=== PATIENT | female | born 1945 | race Caucasian/White ===

== ENCOUNTER 2017-12-22 12:17 | Inpatient (IN) | payer MEDICARE, MEDICAID ==
[~2017-12-22] VITALS: Ht 157.5 cm; Wt 84.8 kg
[2017-12-22 12:34] VITALS: BP 128/37; BP 129/56
[2017-12-22 12:36] LABS: URINE BILIRUBIN NEGATIVE (Negative); URINE BLOOD 1+ (Negative); URINE CLARITY SL CLOUDY; URINE COLOR DARK YELLOW; URINE GLUCOSE-RANDOM NEGATIVE (Negative); URINE KETONES TRACE (Negative); URINE LEUKOCYTES-REFLEX 1+ (Negative); URINE NITRITE-REFLEX NEGATIVE (Negative); URINE PROTEIN NEGATIVE (Negative); URINE SPECIFIC GRAVITY 1.015 (1.005-1.030); URINE UROBILINOGEN 0.2 E.U./dl (0.2-1.0)
[2017-12-22] MEDS ORDERED: XIFAXAN550 M1 PO (12:41)
[2017-12-22] MEDS ORDERED: LASIX 20 MG TAB20 MG PO (12:42)
[2017-12-22] MEDS ORDERED: PROZAC10 MG PO (12:42)
[2017-12-22] MEDS ORDERED: TRAZODONE HCL100 MG PO (12:43)
[2017-12-22] MEDS ORDERED: ZOFRAN ODT4 MG PO (12:43)
[2017-12-22] MEDS ORDERED: SPIRONOLACTONE100 M1 PO (12:43)
[2017-12-22] MEDS ORDERED: REQUIP 0.25 M0.25 MG PO (12:44)
[2017-12-22] MEDS ORDERED: LACTULOSE20 GM/30 M PO (12:45)
[2017-12-22 12:56] LABS: ABSOLUTE LYMPHOCYTES 0.2 thou/uL (0.8-5.3); ABSOLUTE MONOCYTES 0.2 thou/uL (0.0-1.2); ABSOLUTE NEUTROPHILS 1.7 thou/uL (1.6-8.1); BASOPHILS 0.4 %; EOSINOPHILS 1.1 %; HEMATOCRIT 26.7 % (37.0-47.0); HEMOGLOBIN 8.8 gm/dL (12.0-15.0); MCH 28.4 pg (26.0-34.0); MONOCYTES 8.9 %; NUCLEATED RBCS 0 /100WBC; POLYS 79.6 %; RBC 3.11 mil/uL (4.20-5.00); RDW-CV 17.6 % (10.5-14.5); WBC 2.1 thou/uL (4.0-11.0)
[2017-12-22 12:57] LABS: BACTERIA-REFLEX 1-9 Few /HPF (None Seen); MUCUS 0-3 Light strn/LPF (None Seen); SQUAMOUS >10 Many /LPF (0-3); URINE RBC 3-10 Few /HPF (0-2); URINE WBC-REFLEX 6-15 Few /HPF (0-5)
[2017-12-22 12:58] LABS: CASTS None Seen /LPF (None Seen); CRYSTALS None Seen /LPF (None Seen)
[2017-12-22 13:05] LABS: ANION GAP 5 mmol/L (7-16); BUN 19 mg/dL (7-18); CALCIUM 7.8 mg/dL (8.5-10.1); CHLORIDE 106 mmol/L (98-107); CO2 26 mmol/L (21-32); CREATININE 1.5 mg/dL (0.6-1.3); GLUCOSE 102 mg/dL (70-99); POTASSIUM 4.8 mmol/L (3.5-5.1); SODIUM 137 mmol/L (136-145)
[2017-12-22 13:06] LABS: APTT 34.8 Seconds (25.0-31.3); INR 1.4
[2017-12-22 13:19] LABS: MPV 7.3 fl. (7.2-11.1)
[2017-12-22 13:20] LABS: PLATELET COUNT* 32 thou/uL (150-400)
[2017-12-22 13:21] LABS: ANISOCYTOSIS 1+; PLATELET ESTIMATE DECREASED; POIKILOCYTOSIS 1+
[2017-12-22 13:22] LABS: SGOT 38 U/L (15-37)
[2017-12-22 13:23] LABS: ALBUMIN 2.6 g/dL (3.4-5.0); ALKALINE PHOSPHATASE 102 U/L (46-116); AMMONIA 72 umol/L (11-32); NT-PRO BRAIN NAT PEPTIDE 390 pg/mL (<300); SGPT 21 U/L (30-65); TOTAL BILIRUBIN 2.3 mg/dL (<0.1-1.0); TOTAL PROTEIN 6.6 g/dL (6.4-8.2); TROPONIN-I LEVEL <0.06 ng/mL (<0.06)
[2017-12-22 14:45] VITALS: BP 117/39
[2017-12-22 15:02] VITALS: BP 104/45
--- NOTE | 2017-12-22 15:07 | EKG ---
[place] [address] ELECTROCARDIOGRAM REPORT Name: NAM PARHAM Room: [address] ADM IN M.R.#: [id number] Admission: 12/22/17 Attend Phys: Anju Castano Discharge: Date of : 49 Report #: [id number] THIS REPORT FOR: //name// [facility] ED Test Date: 2017-12-22 Test Time: 13:04:24 Pat Name: NAM PARHAM Department: Room: [facility] Gender: F Spice Fumigator: : 1945 Requested By: Talon Perez Order Number: [id number] MD: Devin Pena Measurements Intervals Wever Rate: 65 P: 35 TX: 161 QRS: -5 QRSD: 96 T: 17 QT: 486 QTc: 506 Interpretive Statements Sinus rhythm Atrial premature complexes Anteroseptal infarct, age indeterminate Prolonged QT interval Low voltage in limb leads No previous ECG available for comparison Electronically Signed On 12-22-2017 15:06:59 CDT by Devin Pena [email or web address] <ELECTRONICALLY SIGNED> By: Devin Pena MD, FACC 12/22/17 1506 1304 1304 Devin Pena MD, [facility] /EPI
[2017-12-22] MEDS ORDERED: PROTONIX40 M1 PO (16:10)
--- NOTE | 2017-12-22 16:30 | NUR ---
PATIENT ADMITTED TO ROOM 305 FROM ER. PATIENT ALERT AND ORIENTED BUT CAN BE FORGETFUL/CONFUSED. PATIENT AMBULATED TO BATHROOM WITH ASSISTANCE OF THIS NURSE, WEAKNESS NOTED. FALL RISK PROTOCOL IN PLACE. BM NOTED. PHOTOS TAKEN OF GROIN EXCORIATION AND BUTTOCKS EXCORIATION. CREAM APPLIED. IVF INFUSING ORDERED. FEET ELEVATED, EDEMA NOTED TO ANKLES MARIAH 2+. BED ALARM ON FOR PATIENT SAFETY. 2MG NA DIET. ORIENTED TO CALL LIGHT, CALL LIGHT WITHIN REACH, WILL CONTINUE TO MONITOR.
--- NOTE | 2017-12-22 17:45 | NUR ---
TOOK OVER CARE OF PATIENT AT 1700, AGREE WITH NURSES ASSESSMENT. PATIENT HAS HAD NO COMPLAINTS. CALL LIGHT IS IN REACH, WILL CONTINUE TO MONITOR.
[2017-12-23] VITALS: BP 100/30; BP 102/34
--- NOTE | 2017-12-23 05:54 | NUR ---
PATIENT SLEPT MOST OF THE NIGHT. NEW IV WAS STARTED CHARTED. PATIENT HAD NO COMPLAINTS OF PAIN. PATIENT WAS TURNED ABOUT EVERY TWO HOURS. WILL CONTINUE TO MONITOR.
[2017-12-23 08:45] VITALS: BP 117/50
[2017-12-23 10:22] LABS: HEMATOCRIT 22.6 % (37.0-47.0); HEMOGLOBIN 7.4 gm/dL (12.0-15.0); MCH 28.5 pg (26.0-34.0); MCHC 32.9 g/dL (28.0-37.0); MCV 86.6 fL (80.0-100.0); MPV 7.7 fl. (7.2-11.1); NUCLEATED RBCS 0 /100WBC; RBC 2.61 mil/uL (4.20-5.00); RDW-CV 17.3 % (10.5-14.5)
[2017-12-23 10:28] LABS: PLATELET COUNT* 25 thou/uL (150-400); WBC 1.5 thou/uL (4.0-11.0)
[2017-12-23 10:30] LABS: ALBUMIN 2.1 g/dL (3.4-5.0); CALCIUM 7.5 mg/dL (8.5-10.1); CREATININE 1.3 mg/dL (0.6-1.3); POTASSIUM 4.2 mmol/L (3.5-5.1); TOTAL BILIRUBIN 2.1 mg/dL (<0.1-1.0); TOTAL PROTEIN 5.3 g/dL (6.4-8.2)
[2017-12-23 10:45] LABS: ABSOLUTE LYMPHOCYTES 0.4 thou/uL (0.8-5.3); ABSOLUTE MONOCYTES 0.1 thou/uL (0.0-1.2); ANISOCYTOSIS 1+; ATYPICAL LYMPHS 2 %; HYPOCHROMASIA 1+; MICROCYTES 1+
[2017-12-23 10:46] LABS: PLATELET ESTIMATE DECREASED
--- NOTE | 2017-12-23 11:24 | NUR ---
SW met with pt to complete initial assessment, introduce self, and SW role. Pt alert and oriented. Pt lives at home with her dtr. Pt has a cane and a walker. Pt is active with [facility]. Pt thinks she will be able to dc home soon and that her dtr would provide a ride home when needed. SW to continue to follow to assist with safe dc planning.
--- NOTE | 2017-12-23 14:47 | NUR ---
PATIENT UP TO CHAIR ALL MORNING AND AFTERNOON. CRITICAL RBC AND PLATELET LEVEL CALLED TO DR. ALLEN, ORDERS FOR LASIX PLACED IN COMPUTER AND GIVEN ORDERED. FREQUENT LOOSE STOOLS, LACTULOSE TID. GI CONS PLACED, AWAITING ROUNDING. IV ABX INFUSED THIS AM, SL OTHERWISE. UA COLLECTED AND SENT ORDERED THIS AFTERNOON. PATIENT TRANSFERRED TO ROOM 113 AND REPORT CALLED TO DELGADO WEBER.
--- NOTE | 2017-12-23 14:55 | NUR ---
TRANSFER NOTE - REC PT FROM [facility]. REPORT GIVEN BY DELGADO SALGADO. NO QUESTIONS. AGREE WITH ASSESSMENT AND DOCUMENTATION. WILL CONTINUE TO MONITOR. PT PLACED ON FALL PRECAUTIONS. WALKER PROVIDED. DTR AT BEDSIDE. PT ORIENTED TO CALL LIGHT AND ROOM.
[2017-12-23 15:00] VITALS: BP 117/37
--- NOTE | 2017-12-23 16:22 | NUR ---
SHIFT NOTE - REC PT FROM [facility] THIS AFTERNOON. UP TO BR WITH STANDBY AND WALKER. DTR PRESENT AT BEDSIDE. WORSENING LABS. REDRAWING IN AM.
[2017-12-23 16:46] LABS: URINE BILIRUBIN NEGATIVE (Negative); URINE BLOOD NEGATIVE (Negative); URINE CLARITY CLEAR; URINE COLOR YELLOW; URINE GLUCOSE-RANDOM NEGATIVE (Negative); URINE KETONES NEGATIVE (Negative); URINE LEUKOCYTES NEGATIVE (Negative); URINE NITRITE NEGATIVE (Negative); URINE PROTEIN NEGATIVE (Negative); URINE SPECIFIC GRAVITY <= 1.005 (1.005-1.030); URINE UROBILINOGEN 0.2 E.U./dl (0.2-1.0)
[2017-12-23 21:00] VITALS: BP 117/33
[2017-12-23 23:00] VITALS: BP 122/42
--- NOTE | 2017-12-24 05:03 | NUR ---
UP WITH WALKER AND 1 ASSIST TO BATHROOM. VOIDING WITHOUT DIFFICULTY. ON EVERY 2 HOUR TURN SCHEDULE. MEDICATION APPLIED TO RASH IN GROIN AND BUTTOCK AREAS. CONTINUES ON LACTOLOSE. CALL LIGHT WITHIN REACH. ALERT AND ORIENTED X4. BED ALARM ON.
[2017-12-24] MEDS ORDERED: CEFUROXIME250 MG PO (09:26)
[2017-12-24] MEDS ORDERED: NYAMYC15 GM TOP (09:26)
[2017-12-24] MEDS ORDERED: PROBIOTIC1 EAC1 PO (09:26)
[2017-12-24 11:00] VITALS: BP 122/42
--- NOTE | 2017-12-24 14:59 | NUR ---
ORDERS RECEIVED FOR DC HOME WITH HH. FAXED DC PAPERS TO [facility], RECEIVED CALL BACK FROM [facility], THEY HAVE PAPERWORK AND WILL SEE PT AT HOME.
--- NOTE | 2017-12-24 16:28 | NUR ---
PT DISCHARGED AT 1400 VIA WHEELCHAIR, PT DAUGHTER HERE, NURSING STAFF ASSISTED PT TO VEHICLE, STAND AND PIVOT TRANSFER WITHOUT DIFFICULTIES. THIS NURSE CONTACTED [facility] AND THEY WILL F/U FOR HOME CARE, PAPERWORK FAXED TO THEM REQUESTED, PT HAD NO C/O AT THE TIME OF DISCHARGE
== END 2017-12-24 14:00 | disposition home health service (06) | DRG 441 ==
LOC: M.ERS 12:17 → M.3W 14:13 → M.TBA-ER 14:13 → M.3W 14:55 → M.ORTHSURG 12-23 14:48
PROVIDERS: Family Medicine; ADMIT Internal Medicine
DX: K72.00 Acute and subacute hepatic failure without coma (principal); G92 Toxic encephalopathy; R65.11 Systemic inflammatory response syndrome (SIRS) of non-infectious origin with acute organ dysfunction; N39.0 Urinary tract infection, site not specified; D61.818 Other pancytopenia; K74.60 Unspecified cirrhosis of liver; K75.81 Nonalcoholic steatohepatitis (NASH); E11.9 Type 2 diabetes mellitus without complications; I10 Essential (primary) hypertension; F32.9 Major depressive disorder, single episode, unspecified; G47.00 Insomnia, unspecified; Z90.49 Acquired absence of other specified parts of digestive tract; Z79.899 Other long term (current) drug therapy; Z88.2 Allergy status to sulfonamides; Z88.8 Allergy status to other drugs, medicaments and biological substances; Z80.8 Family history of malignant neoplasm of other organs or systems; Z82.49 Family history of ischemic heart disease and other diseases of the circulatory system